=== PATIENT | female | born 1980 | race Two or more races ===

== ENCOUNTER 2016-04-30 16:54 | Emergency (ER) | payer MEDICAID ==
--- NOTE | 2016-04-30 17:15 | UCPHY ---
H & P Patient Type: Established HPI/ROS: CHIEF COMPLAINT: Tooth pain, cough. HISTORY OF PRESENT ILLNESS: The patient is a 35-year-old female currently (LMP in February) (menses prior to that was less than usual, thus gestation age is anywhere between 6-12 weeks. She is status post root canal 1.5 weeks ago who presents with cough for 3 days and ongoing oral pain. Cough is productive with clear sputum. She admits chills, rhinorrhea, but no fever. She admits recent sick contact with her boyfriend, who had upper respiratory congestion but no fever. She denies lymphadenopathy. She is on chronic oxygen use at home. She is worried about the effects of pain medication on her fetus. REVIEW OF SYSTEMS: Constitutional: As above. Eyes: No discharge ENT: No sore throat. No oral lesions Cardiovascular: No chest pain, no palpitations. Respiratory: As above. Gastrointestinal: No nausea vomiting or diarrhea. No abdominal pain. Genitourinary: No frequency. Musculoskeletal: No back pain. Skin: No rashes. Neurological: No headache. 10 point ROS otherwise negative Past Medical/Surgical History: Anemia, sleep apnea, chronic O2 use. Social History: Smoker. Smoking Status: Current some day smoker Physical Exam: General Appearance: Alert, no distress. Afebrile. Normal phonation. No respiratory distress. Wearing [place] with a portable tank Eyes: Pupils equal and round no pallor or injection. No icterus ENT, Mouth: Mucous membranes moist. Pharynx not erythematous and without exudate. TM Clear. There is a cap present on the tooth. Is benign. There is no gingival edema or swelling or discharge. Sinuses are nontender Neck: No adenopathy. Supple. No JVD. Trachea in midline. Respiratory: There are no retractions, lungs are clear to auscultation. Skin: Warm and dry, no rashes. Musculoskeletal: No joint swelling. Extremities: No edema. Psychiatric: Normal affect Constitutional: Initial Vital Signs Heart Rate 99 04/30/16 17:19 Respiratory Rate 20 04/30/16 17:19 Blood Pressure 127/91 H 04/30/16 17:19 O2 Sat (%) 96 04/30/16 17:19 O2 Delivery Mode Nasal Cannula O2 (L/minute) 2 Allergies/Adverse Reactions: albuterol Allergy (Verified 04/30/16 17:26) Home Medications: Medication Instructions Recorded Levothyroxine [Synthroid 50 mcg 08/27/14 (*)] Metformin HCl [Fortamet 1000 mg] 08/27/14 Sertraline HCl 08/27/14 Acetaminophen [Tylenol 325mg (*)] 650 mg PO Q6 #30 tab 04/30/16 Amoxicillin 500 mg PO TID 10 Days 04/30/16 Duloxetine HCl 04/30/16 Medical Decision Making ED Course/Re-evaluation: The patient had a flu swab drawn. This was negative. 1826: Reassessed patient. I informed her of the results of her lab work. Well penicillin with drug choice to the dental pain, amoxicillin should work well indeed if in the there is some underlying pneumonia or sinusitis. Differential Diagnosis: Diagnostic considerations include, but are not limited to, the following: URI, sinusitis, pharyngitis, otitis media, pneumonia, allergy. In addition, dental abscess or dental infection or malocclusion related to recent dental work. Departure - Departure Disposition: Home, Routine, Self-Care Clinical Impression: Oral pain Upper respiratory infection Qualifiers: URI type: unspecified viral URI Qualified Code(s): J06.9 - Acute upper respiratory infection, unspecified; B97.89 - Other viral agents as the cause of diseases classified elsewhere Condition: Good Instructions: Upper Respiratory Infection (ED) Additional Instructions: Take Amoxicillin as prescribed. Take 650mg Tylenol every 4-6 hours for fever and pain. As your in the 1st trimester, you're not take any [id number] cold products Follow up with your primary care provider next week for reevaluation. Return for any serious worsening of condition. Referrals: TITA MILAN,. [Primary Care Provider] - As per Instructions Prescriptions: Acetaminophen [Tylenol 325mg (*)] 650 mg PO Q6 #30 tab Amoxicillin 500 mg PO TID 10 Days - PQRS PQRS Measurement: Not applicable. Report Scribed for: Horace Gregg Report Scribed by: Reymundo Clement Date of Report: 04/30/16 Time of Report: 17:15 Physician Review and Approval Statement: 04/30/16 17:15 Portions of this note were transcribed by a medical records assistant. I personally performed a history, physical exam, medical decision making, and confirmed accuracy of information the transcribed note.
[2016-04-30 17:26] VITALS: BP 127/91; PULSE 99; RESP 20; O2SAT 96
== END 2016-04-30 18:41 | disposition home or self-care (01) ==
LOC: CED 16:54
DX: J06.9 Acute upper respiratory infection, unspecified (principal); K08.89 Other specified disorders of teeth and supporting structures; Z72.0 Tobacco use
CPT/HCPCS: 87400-PO; G0463-PO

== ENCOUNTER 2018-04-15 17:07 | Emergency (ER) | payer OTHER, MEDICAID ==
[2018-04-15] MEDS ORDERED: predniSONE 20 MG TAB PO ONE (17:41)
--- NOTE | 2018-04-15 17:48 | EDPHY ---
H & P Time Seen by Provider: 04/15/18 17:23 HPI/ROS: This pain patient describes nasal congestion over the past few days explaining that her "whole family has a cold", but over the past 2 days she developed increasing wheeze and feeling of bronchial tightness. She describes a dry cough associated with this. She has subjective fevers as well and nausea but no vomiting. She notes no clear exacerbating factors for her symptoms. ROS: Constitutional: Fevers as per HPI HEENT: Mild sore throat. No sinus pain. No ear pain. Pulmonary: No pleuritic pain. No hemoptysis Cardiovascular: No heart palpitations. No leg swelling calf pain. GI: No abdominal pain. : No complaint Integumentary: No pallor or rash. 10 point review of symptoms is performed and otherwise negative with exception of pertinent positives and negatives listed in HPI and ROS Past Medical/Surgical History: Restrictive lung disease Morbid obesity This reports a significant allergy to both albuterol and Xopenex Family history is negative for premature coronary artery disease Smoking Status: Current some day smoker Physical Exam: General Appearance: Pleasant morbidly obese female Alert, no distress. Eyes: Pupils equal and round no pallor or injection. ENT, Mouth: Mucous membranes moist. Respiratory: Mild to moderate expiratory wheeze bilaterally. No stridor. No dysphonia. Cardiovascular: Regular rate and rhythm. No murmur gallop rub. No peripheral edema. No calf swelling or tenderness Gastrointestinal: Abdomen is soft and nontender, no masses, bowel sounds normal. Neurological: GCS of 15. Skin: Warm and dry, no rashes. Musculoskeletal: Neck is supple nontender. Extremities are symmetrical, full range of motion. Psychiatric: Mood and affect are normal DIFFERENTIAL DIAGNOSIS: After history and physical exam differential diagnosis was considered for acute bronchitis, pneumonia, influenza, reactive airway disease Constitutional: Initial Vital Signs Temperature (C) 36.9 C 04/15/18 17:15 Heart Rate 111 H 04/15/18 17:15 Respiratory Rate 24 H 04/15/18 17:15 Blood Pressure 117/70 04/15/18 17:15 O2 Sat (%) 97 04/15/18 17:15 O2 Delivery Mode Nasal Cannula O2 (L/minute) 2 Allergies/Adverse Reactions: albuterol Allergy (Verified 04/15/18 17:14) Home Medications: Medication Instructions Recorded Levothyroxine [Synthroid 50 mcg 08/27/14 (*)] Duloxetine HCl 04/30/16 Azithromycin [Zithromax] 250 mg PO DAILY #4 tab 04/15/18 VYVANSE 04/15/18 predniSONE 60 mg PO DAILY #15 tab 04/15/18 MDM/Departure - MDM Diagnostics: 12 lead EKG performed at 6:34 p.m. Indication chest tightness rule out cardiac ischemia Sinus rhythm at 84 Intervals: Normal throughout [place]: Normal throughout ST segments: Normal throughout Overall assessment: Normal EKG Imaging Results: Imaging Impressions Chest X-Ray 04/15/18 17:42 Impression: Moderate perihilar bronchitis/RAD, with no focal infiltrate identified. Imaging: I viewed and interpreted images myself Medications Given: Discontinued Medications Azithromycin (Zithromax) 500 mg PO EDNOW ONE PRN Reason: Protocol Stop: 04/15/18 18:36 Last Admin: 04/15/18 18:45 Dose: 500 mg Prednisone (Prednisone) 60 mg PO EDNOW ONE Stop: 04/15/18 17:42 Last Admin: 04/15/18 17:49 Dose: 60 mg ED Course/Re-evaluation: Monitor Prednisone 60 mg p.o. Zithromax 500 mg p.o. Studies: Rapid influenza is negative. Discussion: Patient here with bronchitis. She has a history of restrictive lung disease on home O2 typically 1-2 L at baseline with dyspnea on exertion wheezing associated with her cough over the past 2 days. No high fevers and no pneumonia on chest x-ray. She is a smoker. A counselor in some detail regarding importance of quitting smoking considering her underlying lung disease. She reports a strong albuterol allergy as well as Xopenex allergy which preclude the use of are customary beta agonists for her wheezing. Did treat her with corticosteroids Plan continue the same and Zithromax. She has normal EKG today and I think that her feeling of bronchial tightness is indeed from her bronchitis rather than representing cardiac ischemia. She will follow up with primary care physician understands the need to return emergency department should she develop any significant worsening despite the treatment plan. - Depart Disposition: Home, Routine, Self-Care Clinical Impression: Interstitial lung disease, Hypoxia Acute bronchitis Qualifiers: Bronchitis organism: unspecified organism Qualified Code(s): J20.9 - Acute bronchitis, unspecified Condition: Good Instructions: How to Stop Smoking (ED), Acute Bronchitis (ED), Reactive Airways Disease (ED) Additional Instructions: Diagnoses: 1. Acute bronchitis 2. Hypoxia Plan: Quit smoking Humidifier Zithromax antibiotic Prednisone as prescribed. Take the next dose in the morning after breakfast and subsequent doses in the morning. Continue your home O2. Call your primary care physician to arrange close follow-up appointment for sometime within the next 2-3 days. Return emergency department if he developed increased wheeze or shortness of breath despite treatment plan Prescriptions: Azithromycin [Zithromax] 250 mg PO DAILY #4 tab predniSONE 60 mg PO DAILY #15 tab Referrals: Micha Fuller MD [Primary Care Provider] - As per Instructions
[2018-04-15] MEDS ORDERED: AZITHROMYCIN 250 MG TAB PO ONE (18:35)
[2018-04-15 18:49] VITALS: BP 101/76
--- NOTE | 2018-04-15 20:14 | CPEKG ---
Test Reason : OPEN Blood Pressure : / mmHG Vent. Rate : 084 BPM Atrial Rate : 084 BPM P-R Int : 156 ms QRS Dur : 089 ms QT Int : 384 ms P-R-T Axes : -07 -11 019 degrees QTc Int : 454 ms Sinus rhythm Confirmed by Kolby Washington ([id number]) on 04/15/2018 8:14:09 PM Referred By: KOLBY WASHINGTON Confirmed By:Kolby Washington
== END 2018-04-15 19:01 | disposition home or self-care (01) ==
LOC: CED 17:07
DX: J20.9 Acute bronchitis, unspecified (principal); R09.02 Hypoxemia; F17.200 Nicotine dependence, unspecified, uncomplicated
CPT/HCPCS: 71046; 93005; 99284; J7512; 87400-QW-ER